=== PATIENT | female | born 1990 | race Asian ===

== ENCOUNTER 2021-02-26 14:26 | Emergency (ER) | payer OTHER ==
[~2021-02-26] VITALS: Ht 177.8 cm; Wt 65.8 kg
[2021-02-26] MEDS ORDERED: MAXITROL EYE DRO5 ML OP (16:29)
== END 2021-02-26 16:34 | disposition home or self-care (01) ==
LOC: ER 14:26
DX: S01.111A Laceration without foreign body of right eyelid and periocular area, initial encounter (principal); W45.8XXA Other foreign body or object entering through skin, initial encounter; Y93.B2 Activity, push-ups, pull-ups, sit-ups; Y92.832 Beach as the place of occurrence of the external cause; Y99.8 Other external cause status